=== PATIENT | male | born 1960 ===

== ENCOUNTER → 2016-05-22 | Outpatient (CLI) | payer OTHER ==
[2016-05-22 09:17] LABS: Albumin 4.3 g/dL (3.4-5.0); BUN/Creatinine Ratio 9.9; Bilirubin, Total 1.8 mg/dL (0.2-1.0); Calcium 9.5 mg/dL (8.5-10.1); Potassium 3.9 mmol/L (3.5-5.1); Total Protein 7.8 g/dL (6.4-8.2)
[2016-05-22 09:23] LABS: Basophils # (auto) 0.1 uL; Basophils % (auto) 1.1 % (0.0-2.0); Eosinophils # (auto) 0.2 uL; Eosinophils % (auto) 3.1 % (0.0-7.0); Hematocrit 48.4 % (41.0-53.0); Hemoglobin 16.1 g/dL (13.5-17.5); Lymphocytes # (auto) 1.9 uL; Lymphocytes % (auto) 29.2 % (10.0-50.0); Mean Corpuscular Hemoglobin 28.9 pg (28.0-32.0); Mean Corpuscular Hgb Conc. 33.3 g/dL (32.0-36.0); Mean Corpuscular Volume 86.8 fL (80.0-100.0); Mean Platelet Volume 8.6 fL (7.4-10.4); Monocytes # (auto) 0.6 uL; Neutrophils # (auto) 3.6 uL; Neutrophils % (auto) 57.6 % (37.0-80.0); Platelet Count (auto) 204 10^3/uL (140-450); Red Cell Distribution Width 11.6 % (11.6-16.0); White Blood Cell 6.4 10^3/uL (4.4-10.8)
== END | disposition home or self-care (01) ==
LOC: LAB 07:58
PROVIDERS: ATTEND Internal Medicine
DX: I10 Essential (primary) hypertension (principal); M47.816 Spondylosis without myelopathy or radiculopathy, lumbar region; Z76.0 Encounter for issue of repeat prescription
CPT/HCPCS: 36415; 80053; 85025

== ENCOUNTER → 2018-03-12 | Outpatient (CLI) | payer OTHER ==
[2018-03-12 10:11] LABS: Basophils # (auto) 0.1 uL; Basophils % (auto) 1.7 % (0.0-2.0); Eosinophils # (auto) 0.2 uL; Eosinophils % (auto) 2.7 % (0.0-7.0); Hematocrit 48.3 % (41.0-53.0); Hemoglobin 16.2 g/dL (13.5-17.5); Lymphocytes # (auto) 2.3 uL; Lymphocytes % (auto) 36.5 % (10.0-50.0); Mean Corpuscular Hemoglobin 28.8 pg (28.0-32.0); Mean Corpuscular Hgb Conc. 33.5 g/dL (32.0-36.0); Monocytes # (auto) 0.5 uL; Neutrophils # (auto) 3.3 uL; Neutrophils % (auto) 51.1 % (37.0-80.0); Nucleated Red Blood Cells % 0.1 %; Platelet Count (auto) 201 10^3/uL (140-450); Red Blood Cells 5.62 10^6/uL (4.5-5.90); Red Cell Distribution Width 13.4 % (11.8-14.3); White Blood Cell 6.4 10^3/uL (4.4-10.8)
[2018-03-12 10:12] LABS: Urine Bacteria NONE SEEN /hpf (None Seen); Urine Blood Negative /uL (Negative); Urine Specific Gravity 1.014 (1.001-1.035); Urine WBC None Seen /hpf (0 - 3)
[2018-03-12 10:42] LABS: Potassium 4.2 mmol/L (3.5-5.1)
[2018-03-12 10:54] LABS: BUN/Creatinine Ratio 11.1; Bilirubin, Total 1.3 mg/dL (0.2-1.0); Calcium 9.4 mg/dL (8.5-10.1); Total Protein 7.5 g/dL (6.4-8.2)
== END | disposition home or self-care (01) ==
LOC: LAB 08:32
PROVIDERS: ATTEND Nurse Practitioner
DX: N40.1 Benign prostatic hyperplasia with lower urinary tract symptoms (principal); E78.5 Hyperlipidemia, unspecified
CPT/HCPCS: 36415; 80053; 80061; 81001; 84153; 84443; 84550; 85025